=== PATIENT | male | born 1960 ===

== ENCOUNTER 2022-04-24 04:03 | Day surgery (SDC) | payer BC ==
[2022-04-22 16:10] VITALS: BMI 25.4
[2022-04-24] MEDS ORDERED: MIDAZOLAM HCL 2 MG/2 ML SINGLE DOSE VIAL ONE (09:19)
[2022-04-24] MEDS ORDERED: SUCCINYLCHOLINE CHLORIDE 200 MG/10 ML SYRINGE ONE (09:19)
[2022-04-24] MEDS ORDERED: PROPOFOL 20 ML ONE (09:19)
[2022-04-24] MEDS ORDERED: ROCURONIUM BROMIDE 50 MG/5 ML SYRINGE ONE (09:19)
[2022-04-24] MEDS ORDERED: LIDOCAINE HCL 2% 100 MG/5 ML DISP.SYRIN ONE (09:20)
[2022-04-24] MEDS ORDERED: oxyCODONE HCL 5 MG TABLET PO PRN (10:46)
[2022-04-24] MEDS ORDERED: ACETAMINOPHEN 325 MG TABLET (FP) PO PRN (10:46)
[2022-04-24] MEDS ORDERED: ONDANSETRON 4 MG/2 ML VIAL IVPUSH PRN (10:46)
[2022-04-24] MEDS ORDERED: LACTATED RINGERS SOLUTION 1,000 ML IV SCH (11:00)
[2022-04-24] MEDS ORDERED: ceFAZolin SODIUM 1 GM VIAL IVPB ONE (11:30)
[2022-04-24] MEDS ORDERED: BUPIVACAINE HCL/PF 0.5% (5MG/ML) 10 ML VIAL IJ ONE (12:06)
[2022-04-24 14:03] VITALS: RESP 18
[2022-04-24 15:36] VITALS: BP 127/71; PULSE 79; TEMP 97.7
== END 2022-04-24 15:05 | disposition home or self-care (01) ==
LOC: JASU-SURG 04:03
PROVIDERS: ATTEND Surgery
PROC: 0YU60JZ Supplement Left Inguinal Region with Synthetic Substitute, Open Approach (ICD-10-PCS; principal; 2022-04-24 10:00)
DX: K40.90 Unilateral inguinal hernia, without obstruction or gangrene, not specified as recurrent (principal)
CPT/HCPCS: 94760